=== PATIENT | male | born 1955 | race Caucasian/White ===

== ENCOUNTER 2016-02-29 03:23 | Observation (INO) | payer MEDICARE, OTHER ==
[2016-02-29] VITALS (7 sets, daily range): BP systolic 93–143; BP diastolic 52–65; PULSE 76–96; RESP 14–18; TEMP 97.2; O2SAT 97–100
[~2016-02-29] VITALS: Ht 177.8 cm; Wt 87.0 kg
[~2016-02-29 03:23] MED LIST: ADVA250A INH; ADVAI250I PO; AEROMIS4 INH; CIAL20TA PO; DUONI NEB; FLUTI220I INH; PRED10PA PO; VENTAER INH; Z.0.OXYGENDME NC; ZITH250T PO
[2016-02-29] MEDS ORDERED: CLOP75TA PO (03:43)
[2016-02-29] MEDS ORDERED: LISI10TA3 PO (03:43)
[2016-02-29] MEDS ORDERED: PRED20 PO (03:43)
[2016-02-29] MEDS ORDERED: ADVA250A INH (03:43)
[2016-02-29] MEDS ORDERED: SODIUM CHLORIDE 0.9% FLUSH 5 ML FLUSH IVF PRN ×2 (04:30→05:45)
[2016-02-29 04:44] LABS: AUTOMATED NEUTROPHIL # 9.1 TH/MM3 (1.8-7.7); BASOPHIL # 0.1 TH/MM3 (0-0.2); BASOPHIL % 0.8 % (0.0-2.0); EOSINOPHIL # 0.3 TH/MM3 (0-0.4); EOSINOPHIL % 2.3 % (0.0-4.0); HEMATOCRIT 37.8 % (39.0-51.0); HEMO FLAGS DIFF FINAL; LYMPH % 21.6 % (9.0-44.0); MEAN CELL VOLUME 95.9 FL (80.0-100.0); MEAN CORPUSCULAR HEMOGLOBIN 32.4 PG (27.0-34.0); MEAN CORPUSCULAR HGB CONC 33.8 % (32.0-36.0); MONO % 9.3 % (0.0-8.0); PLATELET COUNT 318 TH/MM3 (150-450); RED BLOOD COUNT 3.94 MIL/MM3 (4.50-5.90); RED CELL DISTRIBUTION WIDTH 15.1 % (11.6-17.2); WHITE BLOOD COUNT 13.7 TH/MM3 (4.0-11.0)
[2016-02-29 04:58] LABS: APTT (PATIENT) 32.1 SEC (24.3-30.1); INTERNATIONAL NORMALIZED RATIO 0.9 RATIO; PROTHROMBIN TIME - PATIENT 9.9 SEC (9.8-11.6)
[2016-02-29 05:00] LABS: ANION GAP 13 MEQ/L (5-15); BICARBONATE 11.7 MEQ/L (21.0-32.0); BLOOD UREA NITROGEN 73 MG/DL (7-18); CHLORIDE 114 MEQ/L (98-107); GLOMERULAR FILTRATION RATE 29 ML/MIN (>89); POTASSIUM 3.8 MEQ/L (3.5-5.1); SODIUM (NA) 139 MEQ/L (136-145)
[2016-02-29 05:06] LABS: CREATINE KINASE 85 U/L (39-308)
--- NOTE | 2016-02-29 05:44 | PD ---
HPI Chief Complaint: Chest Pain Time Seen by Provider: 03:48 Travel History International Travel<30 days: No Contact w/Intl Traveler<30days: No Traveled to known affect area: No History of Present Illness HPI The patient's 60 years old. He has had chest pain tonight. It started at rest. Has a location within the left chest somewhat deep. There is no pleuritic component or trauma. He's had no shortness of breath or fever. His level of activity has been normal lately as has his diet. He reports compliance with Plavix and antihypertensives. He reports following up with Dr. Mccann his rn urology in the last few days. PFSH Past Medical History Autoimmune Disease: No Heart Rhythm Problems: No Cancer: Yes (BLADDER) Cardiac Catheterization: Yes Cardiovascular Problems: Yes ([place]) High Cholesterol: Yes Chemotherapy: Yes (LAST TX 01/24/13, BLADDER CX) Chest Pain: No Congestive Heart Failure: No COPD: Yes Diabetes: No Diminished Hearing: No Endocrine: No GERD: No Genitourinary: Yes (RECENT STRESS ON KIDNEY WITH CHEMO) Headaches: Yes Hepatitis: No Hiatal Hernia: No Hypertension: Yes Immune Disorder: No Implanted Vascular Access Dvce: Yes Kidney Stones: No Musculoskeletal: No Neurologic: Yes Psychiatric: No Reproductive: No Respiratory: Yes (EMPHYSEMA) Immunizations Current: Yes Myocardial Infarction: Yes Radiation Therapy: No Renal Failure: No Seizures: No Thyroid Disease: No Ulcer: No Past Surgical History Abdominal Surgery: No AICD: No Body Medical Devices: STENT Cardiac Surgery: Yes Coronary Stent: Yes (x1) Ear Surgery: No Endocrine Surgery: No Eye Surgery: No Genitourinary Surgery: Yes ("BLADDER SCRAPING" NEOBLADDER) Gynecologic Surgery: No Joint Replacement: No Oral Surgery: Yes (DENTAL) Pacemaker: No Thoracic Surgery: Yes (COLLAPSED LUNG) Other Surgery: Yes (PORT PLACEMENT AND PORT REMOVAL) Social History Alcohol Use: Yes (occ.) Tobacco Use: Yes (1.5 ppd) Substance Use: No Allergies-Medications (Allergen,Severity, Reaction): Coded Allergies: No Known Allergies (Unverified , 02/29/16) Reported Meds & Prescriptions Reported Meds & Active Scripts Active Reported Prednisone 20 Mg Tab 20 Mg PO DAILY Clopidogrel (Clopidogrel Bisulfate) 75 Mg Tab 75 Mg PO DAILY Advair Diskus Inh (Fluticasone-Salmeterol Inh) 250-50 Mcg/Blist Aer 1 Puff INH BID Rinse mouth after use. Lisinopril 10 Mg Tab 10 Mg PO DAILY Review of Systems Except as stated in HPI: all other systems reviewed are Neg Physical Exam Narrative GENERAL: 60-year-old male pleasant distress no acute distress SKIN: Warm and dry. HEAD: Atraumatic. Normocephalic. EYES: Pupils equal and round. No scleral icterus. No injection or drainage. ENT: No nasal bleeding or discharge. Mucous membranes pink and moist. NECK: Trachea midline. No JVD. CARDIOVASCULAR: Regular rate and rhythm. No murmur appreciated. RESPIRATORY: No accessory muscle use. Clear to auscultation. Breath sounds equal bilaterally. GASTROINTESTINAL: Abdomen soft, non-tender, nondistended. Hepatic and splenic margins not palpable. MUSCULOSKELETAL: No obvious deformities. No clubbing. No cyanosis. No edema. NEUROLOGICAL: Awake and alert. No obvious cranial nerve deficits. Motor grossly within normal limits. Normal speech. PSYCHIATRIC: Appropriate mood and affect; insight and judgment normal. Data Data Last Documented VS Vital Signs Date Time Temp Pulse Resp B/P Pulse Ox O2 Delivery O2 Flow Rate FiO2 02/29/16 04:35 99 Nasal Cannula 2 02/29/16 03:37 92 02/29/16 03:30 97.2 18 143/65 Orders Electrocardiogram (02/29/16 04:19) Basic Metabolic Panel (Bmp) (02/29/16 04:19) Ckmb (Isoenzyme) Profile (02/29/16 04:19) Complete Blood Count With Diff (02/29/16 04:19) Magnesium (Mg) (02/29/16 04:19) Prothrombin Time / Inr (Pt) (02/29/16 04:19) Act Partial Throm Time (Ptt) (02/29/16 04:19) Troponin I (02/29/16 04:19) Chest, Single Ap (02/29/16 04:19) Ecg Monitoring (02/29/16 04:19) Bilateral Bp Monitoring (02/29/16 04:19) Iv Access Insert/Monitor (02/29/16 04:19) Oximetry (02/29/16 04:19) Oxygen Administration (02/29/16 04:19) Sodium Chloride 0.9% Flush (Ns Flush) (02/29/16 04:30) Labs Laboratory Tests Test 02/29/16 04:15 White Blood Count 13.7 TH/MM3 Red Blood Count 3.94 MIL/MM3 Hemoglobin 12.8 GM/DL Hematocrit 37.8 % Mean Corpuscular Volume 95.9 FL Mean Corpuscular Hemoglobin 32.4 PG Mean Corpuscular Hemoglobin 33.8 % Concent Red Cell Distribution Width 15.1 % Platelet Count 318 TH/MM3 Mean Platelet Volume 7.5 FL Neutrophils (%) (Auto) 66.0 % Lymphocytes (%) (Auto) 21.6 % Monocytes (%) (Auto) 9.3 % Eosinophils (%) (Auto) 2.3 % Basophils (%) (Auto) 0.8 % Neutrophils # (Auto) 9.1 TH/MM3 Lymphocytes # (Auto) 3.0 TH/MM3 Monocytes # (Auto) 1.3 TH/MM3 Eosinophils # (Auto) 0.3 TH/MM3 Basophils # (Auto) 0.1 TH/MM3 CBC Comment DIFF FINAL Differential Comment Prothrombin Time 9.9 SEC Prothromb Time International 0.9 RATIO Ratio Activated Partial 32.1 SEC Thromboplast Time Sodium Level 139 MEQ/L Potassium Level 3.8 MEQ/L Chloride Level 114 MEQ/L Carbon Dioxide Level 11.7 MEQ/L Anion Gap 13 MEQ/L Blood Urea Nitrogen 73 MG/DL Creatinine 2.29 MG/DL Estimat Glomerular Filtration 29 ML/MIN Rate Random Glucose 102 MG/DL Calcium Level 8.9 MG/DL Magnesium Level 2.0 MG/DL Total Creatine Kinase 85 U/L Troponin I LESS THAN 0.02 NG/ML MDM Medical Decision Making Medical Screen Exam Complete: Yes Emergency Medical Condition: Yes Medical Record Reviewed: Yes Differential Diagnosis NSTEMI, unstable angina, coronary vasospasm, PE, PTX, aortic dissection, pericarditis, myocarditis, endocarditis, PNA, esophageal disease, aneurysm, musculoskeletal etiologies, anxiety, cocaine/sympathomimetic abuse Narrative Course CBC & BMP Diagram 02/29/16 04:15 Troponin is undetectable Coags are within acceptable limits. The patient has mild recent renal function however has close side nephrology follow-up. His EKG reveals no acute ischemic injury pattern and admission chest pain is considered most reasonable next step for this patient. Diagnosis Primary Impression: Chest pain Qualified Code: R07.9 - Chest pain, unspecified type Additional Impression: CARLOS (acute kidney injury) Admitting Information Admitting Physician Requests: Observation Conrad Hair MD Feb 29, 2016 05:44
[2016-02-29] MEDS ORDERED: ONDANSETRON HCL 4 MG/2 ML VIAL IV PRN (05:45)
[2016-02-29] MEDS ORDERED: TEMAZEPAM 15 MG CAP PO PRN (05:45)
[2016-02-29] MEDS ORDERED: NITROGLYCERIN 0.4 MG SL 25 TABS/BTL SL PRN (05:45)
[2016-02-29] MEDS ORDERED: ACETAMINOPHEN/HYDROcodone 325 MG/7.5 MG TAB PO PRN (05:45)
[2016-02-29] MEDS ORDERED: MORPHINE SULFATE 4 MG/ML INJ IV PRN (05:45)
[2016-02-29] MEDS ORDERED: ALPRAZolam 0.25 MG TAB PO PRN (05:45)
--- NOTE | 2016-02-29 05:56 | RADRPT ---
EXAM DATE/TIME: 02/29/2016 04:29 [facility] COMPARISON: CT THORAX W CONTRAST, February 20, 2014, 13:36. CHEST PA & LAT, April 26, 2014, 10:46. CHEST SINGLE AP, March 23, 2015, 4:23. CHEST SINGLE AP, March 25, 2015, 20:12. INDICATIONS : Pt C/O shortness of breath and chest pain x 1 day. MEDICAL HISTORY : None. SURGICAL HISTORY : None. ENCOUNTER: Initial ACUITY: 1 day PAIN SCORE: 9/10 LOCATION: Bilateral chest FINDINGS: A single view of the chest demonstrates the lungs to be symmetrically aerated without evidence of mas s, infiltrate or effusion. No evidence pneumothorax. The cardiomediastinal contours are unremarkabl e. Mild eventration of lateral left hemidiaphragm similar in configuration to prior scans and CT. O sseous structures are intact. CONCLUSION: The lungs are clear. No evidence of pneumothorax. Lobito Andre MD on February 29, 2016 at 5:53 Board Certified Radiologist. This report was verified electronically.
[2016-02-29] MEDS ORDERED: RESP: ALBUTEROL 2.5 MG/3 ML NEB (PRN) NEB (08:45)
[2016-02-29] MEDS ORDERED: SODIUM CHLORIDE 0.9% FLUSH 5 ML FLUSH IVF SCH (09:00)
[2016-02-29] MEDS ORDERED: ASPIRIN 325 MG TAB PO SCH (09:00)
[2016-02-29] MEDS ORDERED: predniSONE 20 MG TAB PO SCH (09:00)
[2016-02-29] MEDS ORDERED: CLOPIDOGREL 75 MG TAB PO SCH (09:00)
[2016-02-29] MEDS ORDERED: AMLO5TAB2 PO (09:11)
[2016-02-29] MEDS ORDERED: NITR1SUB3 SL (09:11)
[2016-02-29] MEDS ORDERED: BUDESONIDE-FORMOTEROL 160/4.5 MCG INHALER INH SCH (10:00)
--- NOTE | 2016-02-29 10:42 | MH ---
cc: GEORGE MIRZA MD DATE OF ADMISSION: 02/29/2016 DATE OF : 1955 CHIEF COMPLAINT Chest pain HISTORY OF PRESENT ILLNESS This is a 58-year-old patient presents emergency room for further evaluation of chest discomfort that started after work early in the morning approximately 01:00 a.m. Characteristic of a sudden sharp pain located in his left anterior chest. Severity is 7/10 there was no radiation, duration lasted approximately 35-45 seconds happened approximately six times within a 45 minute period. He became concerned and came to the emergency room. Associated symptoms were none, although he does have chronic shortness of breath due to emphysema however, this did not change it did not hurt to take a deep breath. He has had similar pain such as this in the past although not as frequent. There is no known precipitating factors or relieving factors. He has not had any chest discomfort since arriving to the emergency room. PAST MEDICAL HISTORY 1. Chronic obstructive pulmonary disease. 2. Renal insufficiency. 3. Bladder cancer. 4. Hypertension. 5. Coronary artery disease. 6. Home O2 during sleep. PAST SURGICAL HISTORY March 2013 he had an ileoanal bladder placed at [facility] in [place] primary care provider is Dr. Lopez, his renal physician is Dr. Mccann and neurologist Barbara. SOCIAL HISTORY He smokes two packs of cigarettes daily. Reports a rare alcohol use. Denies any illegal drug use. Does have known hypertension. No known diabetes. No known hyperlipidemia. States he is not taking any cholesterol medication. 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 PAST CARDIAC TESTING: He is following Dr. Liu, due to see Dr. Eric at the end of this month. He had a cardiac stress test 06/05/2015 which showed an inferior infarct with an ejection fraction of 51%. No ischemia. ALLERGIES He has no allergies to medication MEDICATIONS current medication list includes 1. Lisinopril 10 mg daily. 1. Advair 250/50 1 puff b.i.d. 2. Plavix 75 mg daily. 3. Prednisone 20 mg daily. REVIEW OF SYSTEMS IN GENERAL: No fevers, chills, recent illness, fatigue, change in appetite. HEAD, EYES, EARS, NOSE, AND THROAT: No headache or visual changes. CARDIOVASCULAR SYSTEM: No current chest pain in fact no chest pain since arriving to the emergency room otherwise as stated above. No palpitations or dizziness. RESPIRATORY: Reports chronic shortness of breath. No sputum production, wheeze, at this chronic obstructive pulmonary disease is managed with Advair and home O2 and the evening hours at 2 liters. ABDOMEN: No bowel changes, diarrhea, constipation pain distension, blood in stool or dark stool. GENITOURINARY: No dysuria, urgency, frequency or hematuria. Recently had a CT scan of his abdomen and pelvis he and this has an appointment with Dr. Darek wilkins next week to review those results. EXTREMITIES: No lower leg edema or pain. Left bottom of his foot and is chronic neuropathy. States this was from epidural removal from his no. NEUROLOGIC: No bladder surgery in 2014. This is unchanged chronic. MUSCULOSKELETAL: No change in our lumbar discomfort. No difficulty with balance, motor or sensory deficits. PSYCHIATRIC: Psych no anxiety or depression. SKIN: With no concerning lesions. Reports a chronic rash in the palms of his hands which he has taken prednisone for the last 6 weeks area is improving. PHYSICAL EXAMINATION VITAL SIGNS: Temperature 97.2, pulse 96, respiratory 18, blood pressure on admission 143/65, last blood pressure documented 94/52 he is 100% on O2 2 liters. IN GENERAL: He is alert, well-nourished, well-developed in no acute distress pleasant male who appears older than his stated age. HEAD, EYES, EARS, NOSE, AND THROAT: Normocephalic, atraumatic. Eyes: Sclerae clear. Pupils are equal, round. NECK: Neck is supple. Trachea is midline. CARDIOVASCULAR SYSTEM: He has regular rate and rhythm without murmur, rub or gallop. No JVD. S1-S2. No S3. No S4. RESPIRATORY: There are no crackles, wheeze or rhonchi. He has a prolonged expiratory phase. Symmetrical chest rise and diminished breath tones throughout. ABDOMEN: His abdomen is soft, nontender, nondistended. Positive bowel tones. BACK: No scoliosis. No costovertebral angle tenderness. EXTREMITIES: Pulses +1 x4. No dependent edema. MUSCULOSKELETAL: Normal tone x4. No obvious deformities. He is nontender. PSYCHIATRIC: He is alert and oriented x3 has a pleasant affect appropriate to mood, insight and judgment. SKIN: Normal turgor, normal texture. LABORATORY She has had a CBC has a WBC of 13.7, hemoglobin of 12.8, hematocrit of 37.8 otherwise unremarkable. Chemistry has a creatinine of 2.29 estimated GFR 29 otherwise unremarkable. First sets of troponin are negative. Coagulation has APTT of 32.1 otherwise unremarkable. RADIOLOGIC: Chest x-ray Read by radiologist has conclusion of the lungs are clear. No evidence of a pneumothorax. First two EKG's showed normal sinus rhythm with a normal axis and no ST or T segment changes. ASSESSMENT/PLAN 1. Chest pain. Patient has been admitted to the chest pain center. He will be ruled out with three sets of EKG's, cardiac enzymes. He was seen and evaluated by Dr. Mirza if he is ruled out with and EKG's and blood work and is he will be discharged later this afternoon as he has had a recent stress test which was reviewed by Dr. Mirza. The patient also has an appointment with Dr. Eric 03/19/2016 and he will be encouraged to follow and keep that appointment as previously scheduled. Also he will be added amlodipine 5 mg daily for vasodilation in his lisinopril 10 mg daily will be discontinued this been discussed with the patient and he is agreeable to this plan and understands the reason for medication change. 2. Smoking. He has been strongly encouraged and stressed importance of tobacco cessation. Discussed and counseled the patient to quit tobacco use. 3. Renal insufficiency. The patient was encouraged to follow up with his roving can tender as previously scheduled early next week as he recently had lab work for his roving can tender and is scheduled to review that lab work with him. 4. Chronic obstructive pulmonary disease Reorder his Advair as previously scheduled and respiratory treatments q.2 h as needed. And has been ordered. DICTATED BY: SARAH Lang Yessi Copeland /8:43 AM /10:37 AM
[2016-02-29] MEDS ORDERED: SODIUM CHLORID 0.9% 500 ML INJ 500 ML IV ONE (11:15)
--- NOTE | 2016-02-29 12:36 | HHI.DCPOC ---
Discharge Care Plan Diagnosis: (1) Atypical chest pain (2) Tobacco abuse Goals to Promote Your Health * To prevent worsening of your condition and complications * To maintain your health at the optimal level Directions to Meet Your Goals Take your medications as prescribed Follow your dietary instruction Follow activity as directed Keep your appointments as scheduled Take your immunizations and boosters as scheduled If your symptoms worsen call your PCP, if no PCP go to Urgent Care Center or Emergency Room Smoking is Dangerous to Your Health. Avoid second hand smoke Call the 24-hour hour crisis hotline for domestic abuse at Gissel Meza Feb 29, 2016 12:36
--- NOTE | 2016-02-29 14:42 | EKG ---
Date Performed: 02/29/2016 Time Performed: 03:40:20 PTAGE: 60 years EKG: Sinus rhythm NORMAL ECG PREVIOUS TRACING : 03/23/2015 04.11 Since previous tracing, no longer tachycardic DOCTOR: Brenda Mirza Interpretating Date/Time 02/29/2016 14:37:40
--- NOTE | 2016-02-29 14:43 | EKG ---
Date Performed: 02/29/2016 Time Performed: 06:38:09 PTAGE: 60 years EKG: Sinus rhythm NORMAL ECG PREVIOUS TRACING : 03/23/2015 04.11 Since previous tracing, no significant change noted DOCTOR: Brenda Mirza Interpretating Date/Time 02/29/2016 14:38:07
--- NOTE | 2016-03-01 11:06 | EKG ---
Date Performed: 02/29/2016 Time Performed: 12:02:46 PTAGE: 60 years EKG: Sinus rhythm POOR PRECORDIAL R-WAVE PROGRESSION BORDERLINE ECG PREVIOUS TRACING : 02/29/2016 06.38 DOCTOR: Jose Green Interpretating Date/Time 03/01/2016 11:05:46
== END 2016-02-29 14:32 | disposition home or self-care (01) ==
LOC: NEPE 03:23 → NEDA 05:47 → NEDH 10:13
PROVIDERS: ADMIT Internal Medicine Interventional Cardiology; ATTEND Internal Medicine Interventional Cardiology
DX: R07.89 Other chest pain (principal); F17.210 Nicotine dependence, cigarettes, uncomplicated; J44.9 Chronic obstructive pulmonary disease, unspecified; J43.9 Emphysema, unspecified; R06.02 Shortness of breath; N17.9 Acute kidney failure, unspecified; N28.9 Disorder of kidney and ureter, unspecified; I25.2 Old myocardial infarction; I25.10 Atherosclerotic heart disease of native coronary artery without angina pectoris; I10 Essential (primary) hypertension; E78.00 Pure hypercholesterolemia, unspecified; Z85.51 Personal history of malignant neoplasm of bladder; Z95.828 Presence of other vascular implants and grafts; Z99.81 Dependence on supplemental oxygen
CPT/HCPCS: 71010; 80048; 82550; 83735; 84484; 85025; 85610; 85730; 93005; 99285; G0378; J7040; J7512

== ENCOUNTER 2017-05-11 23:27 | Inpatient (IN) | payer OTHER, MEDICARE ==
[~2017-05-11] VITALS: Ht 177.8 cm; Wt 106.0 kg
[2017-05-11 22:32] VITALS: O2SAT 97
[~2017-05-11 23:27] MED LIST changes: -ADVAI250I PO; -AEROMIS4 INH; +AMLO5TAB2 PO; +ATOR40TA16 PO; -CIAL20TA PO; +CLOP75TA PO; -DUONI NEB; -FLUTI220I INH; +NITR1SUB3 SL; -PRED10PA PO; +PRED20 PO; -VENTAER INH; -Z.0.OXYGENDME NC; -ZITH250T PO
[2017-05-11 23:30] VITALS: BP 202/114; PULSE 105; RESP 19; TEMP 98.4; O2SAT 96
--- NOTE | 2017-05-11 23:41 | PD ---
HPI Chief Complaint: Respiratory Distress Time Seen by Provider: 23:34 Travel History International Travel<30 days: No Contact w/Intl Traveler<30days: No Traveled to known affect area: No History of Present Illness HPI The patient is a 62 year old male who presents to the [facility] emergency department with a history of sudden onset of shortness of breath that began again prior to arrival. The patient reports that he was just discharged from [facility] yesterday after a week admission for COPD exacerbation and shortness of breath. Upon ambulance services arrival, the patient was on nasal cannula O2 by fire rescue and saturating 87%. The patient was noted to have crackles in the bases and was placed on CPAP. The patient was noted to be very hypertensive with a blood pressure of 205/134. The patient 's blood sugar was noted to be 121 prior to arrival. The patient received 1 DuoNeb in route to this facility. His O2 saturations improved to 92% on CPAP. The patient reports feeling mildly improved. The patient continues to have accessory muscle use noted, prolonged expiratory phase of breathing, conversational dyspnea and paroxysmal abdominal breathing. The patient reports having a history of COPD. He denies having any prior history of congestive heart failure. He does have a history of coronary artery disease with multiple stents being placed previously. Up until his hospitalization he was smoking 1 pack of cigarettes per day. He denies ever being on a ventilator previously. On review of systems otherwise, patient denies having any known recent fevers, neck pain, chest pain, abdominal pain, vomiting, diarrhea, urinary symptoms, or neurologic symptoms. PFSH Past Medical History Narrative Medical The patient's past medical history is significant for COPD, coronary artery disease, hyperlipidemia, hypertension, prior history of myocardial infarction, history of bladder cancer Hx Anticoagulant Therapy: Yes Autoimmune Disease: No Heart Rhythm Problems: No Cancer: Yes (BLADDER) Cardiac Catheterization: Yes Cardiovascular Problems: Yes (DE) High Cholesterol: Yes Chemotherapy: Yes (LAST TX 01/24/13, BLADDER CX) Chest Pain: No Congestive Heart Failure: No COPD: Yes Diabetes: No Diminished Hearing: No Endocrine: No GERD: No Genitourinary: Yes (RECENT STRESS ON KIDNEY WITH CHEMO) Headaches: Yes Hepatitis: No Hiatal Hernia: No Hypertension: Yes Immune Disorder: No Implanted Vascular Access Dvce: Yes Kidney Stones: No Musculoskeletal: No Neurologic: Yes Psychiatric: No Reproductive: No Respiratory: Yes (COPD) Immunizations Current: Yes Myocardial Infarction: Yes Radiation Therapy: No Renal Failure: No Seizures: No Thyroid Disease: No Ulcer: No Past Surgical History Narrative Surgical The patient's past surgical history is significant for [id number] placement and removal, bladder scraping related to bladder cancer, cardiac catheterization with stent placement. Abdominal Surgery: No AICD: No Body Medical Devices: STENT Cardiac Surgery: Yes Coronary Stent: Yes (x1) Ear Surgery: No Endocrine Surgery: No Eye Surgery: No Genitourinary Surgery: Yes ("BLADDER SCRAPING" NEOBLADDER) Gynecologic Surgery: No Joint Replacement: No Oral Surgery: Yes (DENTAL) Pacemaker: No Thoracic Surgery: Yes (COLLAPSED LUNG) Other Surgery: Yes (PORT PLACEMENT AND PORT REMOVAL) Social History Alcohol Use: Yes (occ.) Tobacco Use: Yes (1 ppd) Substance Use: No Allergies-Medications (Allergen,Severity, Reaction): Coded Allergies: No Known Allergies (Unverified Allergy, Unknown, 05/12/17) Reported Meds & Prescriptions Reported Meds & Active Scripts Active Nitroglycerin SL (Nitroglycerin) 0.4 Mg Subl 0.4 Mg SL DIRECTED PRN ONE TABLET UNDER THE TONGUE NEEDED FOR CHEST PAIN, MAY REPEAT EVERY FIVE MINUTES FOR A TOTAL OF 3 DOSES OR CALL 911 IF NO RELIEF Reported Prednisone 10 Mg Tab 10 Mg PO TID 14 Days Advair Diskus Inh (Fluticasone-Salmeterol Inh) 500-50 Mcg/Blist Aer 1 Puff INH BID Rinse mouth after use. Ventolin Hfa 18 GM Inh (Albuterol Sulfate) 90 Mcg/Act Aer 2 Puff INH Q4-6H PRN Nitrofurantoin Monohydrate Macrocrystals (Nitrofurantoin Monoh/Nitrofur Macro) 100 Mg Cap 100 Mg PO BID 10 Days Aspir-81 (Aspirin) 81 Mg Tabdr 81 Mg PO DAILY Amlodipine (Amlodipine Besylate) 10 Mg Tab 10 Mg PO DAILY Fenofibrate 54 Mg Tab 54 Mg PO DAILY Atorvastatin (Atorvastatin Calcium) 40 Mg Tab 40 Mg PO DAILY Clopidogrel (Clopidogrel Bisulfate) 75 Mg Tab 75 Mg PO DAILY Review of Systems Except as stated in HPI: all other systems reviewed are Neg General / Constitutional: No: Fever Eyes: No: Visual changes HENT: No: Headaches Cardiovascular: Positive: Dyspnea on exertion, No: Chest Pain or Discomfort Respiratory: Positive: Cough, Shortness of Breath Gastrointestinal: No: Abdominal Pain Genitourinary: No: Dysuria Musculoskeletal: No: Pain Skin: No Rash Neurologic: No: Weakness Psychiatric: No: Depression Endocrine: No: Polydipsia Hematologic/Lymphatic: No: Easy Bruising Physical Exam Narrative General: The patient is a well-developed well-nourished male who is short of breath on arrival on CPAP. Head and Neck exam: Head is normocephalic atraumatic. Eyes: EOMI, pupils are equal round and reactive to light. Nose: Midline septum with pink mucous membranes Mouth: Dentition unremarkable. Moist mucus membranes. Posterior oropharynx is not erythematous. No tonsillar hypertrophy. Uvula midline. Airway patent. Neck: No palpable lymphadenopathy. No nuchal rigidity. No thyromegaly. Cardiovascular: Sinus tachycardia in the low 100 without murmurs, gallops, or rubs. No pulse deficit to the extremities on simultaneous auscultation and palpation of his radial artery. Lungs: Decreased breath sounds in bilateral bases, expiratory wheezes noted with prolonged expiratory phase of breathing. The patient has accessory muscle use noted. The patient has paroxysmal abdominal breathing with conversational dyspnea. No tripoding. No rhonchi or crackles audible. Abdomen: Soft, without tenderness to palpation in all 4 quadrants of the abdomen. No guarding, rebound, or rigidity. Normal bowel sounds are audible. No tenderness on palpation of McBurney's point. Extremities: No clubbing, cyanosis, or edema. 2+ pulses in all 4 extremities. No calf tenderness on palpation. Back: No spinous process tenderness to palpation. No costovertebral angle tenderness to palpation. Neurologic Exam: Grossly nonfocal. Skin Exam: No rash noted. Intact skin that is warm and dry. Data Data Last Documented VS Vital Signs Date Time Temp Pulse Resp B/P (MAP) Pulse Ox O2 Delivery O2 Flow Rate FiO2 05/12/17 00:31 94 15 162/75 (104) 98 BiPAP 45 05/11/17 23:42 5.00 05/11/17 23:30 98.4 Orders Orders Complete Blood Count With Diff (05/11/17 23:34) Comprehensive Metabolic Panel (05/11/17 23:34) B-Type Natriuretic Peptide (05/11/17 23:34) Act Partial Throm Time (Ptt) (05/11/17 23:34) Prothrombin Time / Inr (Pt) (05/11/17 23:34) Magnesium (Mg) (05/11/17 23:34) Ckmb (Isoenzyme) Profile (05/11/17 23:34) Troponin I (05/11/17:34) Urinalysis - C+S If Indicated (05/11/17 23:34) Iv Access Insert/Monitor (05/11/17 23:34) Electrocardiogram (05/11/17:34) Ecg Monitoring (05/11/17:34) Oximetry (05/11/17:34) Oxygen Administration (05/11/17 23:34) Chest, Single Ap (05/11/17 23:34) Sodium Chloride 0.9% Flush (Ns Flush) (05/11/17 23:45) Methylprednisolone So Succ Inj (Solumedr (05/11/17 23:45) Albuterol-Ipratropium Neb (Duoneb Neb) (05/11/17 23:45) CKMB (05/11/17 23:39) CKMB% (05/11/17 23:39) Arterial Blood Gas (Abg) (05/12/17 00:07) Levofloxacin 750 Mg Premix Inj (Levaquin (05/12/17 01:00) Admit Order (Ed Use Only) (05/12/17 01:16) Labs Laboratory Tests Test 05/11/17 23:39 05/12/17 00:07 White Blood Count 15.1 TH/MM3 Red Blood Count 5.51 MIL/MM3 Hemoglobin 16.6 GM/DL Hematocrit 47.6 % Mean Corpuscular Volume 86.4 FL Mean Corpuscular Hemoglobin 30.1 PG Mean Corpuscular Hemoglobin Concent 34.8 % Red Cell Distribution Width 15.0 % Platelet Count 236 TH/MM3 Mean Platelet Volume 7.9 FL Neutrophils (%) (Auto) 79.8 % Lymphocytes (%) (Auto) 11.9 % Monocytes (%) (Auto) 7.0 % Eosinophils (%) (Auto) 0.8 % Basophils (%) (Auto) 0.5 % Neutrophils # (Auto) 12.0 TH/MM3 Lymphocytes # (Auto) 1.8 TH/MM3 Monocytes # (Auto) 1.0 TH/MM3 Eosinophils # (Auto) 0.1 TH/MM3 Basophils # (Auto) 0.1 TH/MM3 CBC Comment AUTO DIFF Differential Comment AUTO DIFF CONFIRMED Platelet Estimate NORMAL Platelet Morphology Comment NORMAL Red Cell Morphology Comment NORMAL Prothrombin Time 9.7 SEC Prothromb Time International Ratio 1.0 RATIO Activated Partial Thromboplast Time 26.3 SEC Blood Urea Nitrogen 40 MG/DL Creatinine 1.34 MG/DL Random Glucose 124 MG/DL Total Protein 7.7 GM/DL Albumin 3.7 GM/DL Calcium Level 9.1 MG/DL Magnesium Level 2.3 MG/DL Alkaline Phosphatase 105 U/L Aspartate Amino Transf (AST/SGOT) 24 U/L Alanine Aminotransferase (ALT/SGPT) 49 U/L Total Bilirubin 0.4 MG/DL Sodium Level 139 MEQ/L Potassium Level 4.2 MEQ/L Chloride Level 107 MEQ/L Carbon Dioxide Level 22.0 MEQ/L Anion Gap 10 MEQ/L Estimat Glomerular Filtration Rate 54 ML/MIN Total Creatine Kinase 297 U/L Creatine Kinase MB 11.7 NG/ML Troponin I LESS THAN 0.02 NG/ML B-Type Natriuretic Peptide 40 PG/ML Blood Gas Puncture Site RT RADIAL Blood Gas Patient Temperature 98.6 Blood Gas HCO3 22 mmol/L Blood Gas Base Excess -3.9 mmol/L Blood Gas Oxygen Saturation 93 % Arterial Blood pH 7.30 Arterial Blood Partial Pressure CO2 46 mmHg Arterial Blood Partial Pressure O2 82 mmHG Arterial Blood Oxygen Content 20.4 Vol % Arterial Blood Carboxyhemoglobin 0.7 % Arterial Blood Methemoglobin 0.8 % Blood Gas Hemoglobin 15.5 G/DL Oxygen Delivery Device BiPAP Blood Gas Ventilator Setting IPAP15 / EPAP5 Blood Gas Inspired Oxygen 45 % [facility] Medical Decision Making Medical Screen Exam Complete: Yes Emergency Medical Condition: Yes Medical Record Reviewed: Yes Interpretation(s) Last Impressions Chest X-Ray 05/11/17 1157 Signed Impressions: Service Date/Time: Thursday, May 11, 2017 23:49 - CONCLUSION: No acute findings. Stable chronic focal opacity in the left costophrenic angle. Lobito Andre MD Differential Diagnosis COPD exacerbation, versus pneumonia, versus pneumothorax, versus congestive heart failure, versus acute coronary syndrome Narrative Course During the course of the patient's emergency department visit, the patient's history, examination, and differential diagnosis were reviewed with the patient. The patient was placed on a telemetry monitor with oximetry and frequent blood pressure monitoring. The patient had IV access obtained and blood work sent for analysis. The patient had a EKG done on arrival that shows a sinus tachycardia rate of 108, QRS duration 92 ms, QTC 374 ms without any acute ST segment elevation, occasional premature ventricular complexes are noted. The patient was initially provided duo nebs 2, Solu-Medrol 125 mg IV. The patient was placed on BiPAP. The patient's laboratory studies were reviewed and remarkable for a white count of 15.1, hemoglobin 16.6, platelets 236 with 79.8 neutrophils, chemistry shows a BUN of 40, creatinine 1.34, glucose 124, CPK 297, troponin I less than 0.02. BNP is 40, PT 9.7, PTT 26.3 Radiology studies were reviewed and remarkable for a chest x-ray that shows no acute findings. Stable chronic focal opacity in the left costophrenic angle. The patient was given Levaquin 750 IV 1. The patient reported feeling improved on BiPAP which was titrated to maintain his O2 saturations greater than or equal to 92%. The patient's results were discussed with the patient, including the plan of care. I explained that further testing and/ or monitoring is indicated based on the patient's history, examination, and/ or laboratory findings. Therefore, I recommended admission for additional evaluation. The patient expressed understanding and was agreeable with this plan. The patient was admitted to the hospital in guarded condition and sent to a bed under the care of the [facility] service per Physician Communication Physician Communication The patient's case including history, pertinent physical examination findings, and laboratory studies were discussed with Dr. Yu. It was agreed that the patient would be admitted to the [facility] service. Admitting Information Admitting Physician Requests: Admit La Nena Almonte MD May 11, 2017 23:41
[2017-05-11] MEDS ORDERED: PRED10 PO (23:45)
[2017-05-11] MEDS ORDERED: NITR100C4 PO (23:45)
[2017-05-11] MEDS ORDERED: ADVA500A INH (23:45)
[2017-05-11] MEDS ORDERED: AMLO10TA2 PO (23:45)
[2017-05-11] MEDS ORDERED: ASPI81TA81 PO (23:45)
[2017-05-11] MEDS ORDERED: methylPREDNISolone SOD SUCC 125 MG/2 ML VIAL IV PUSH ONE (23:45)
[2017-05-11] MEDS ORDERED: FENO54TA PO (23:45)
[2017-05-11] MEDS ORDERED: SODIUM CHLORIDE 0.9% FLUSH 10 ML FLUSH IVF PRN (23:45)
[2017-05-11] MEDS ORDERED: VENTAER INH (23:45)
[2017-05-11 23:56] LABS: BASOPHIL # 0.1 TH/MM3 (0-0.2); BASOPHIL % 0.5 % (0.0-2.0); EOSINOPHIL # 0.1 TH/MM3 (0-0.4); EOSINOPHIL % 0.8 % (0.0-4.0); HEMATOCRIT 47.6 % (39.0-51.0); HEMOGLOBIN 16.6 GM/DL (13.0-17.0); LYMPH % 11.9 % (9.0-44.0); LYMPHOCYTE # 1.8 TH/MM3 (1.0-4.8); MEAN CELL VOLUME 86.4 FL (80.0-100.0); MEAN CORPUSCULAR HEMOGLOBIN 30.1 PG (27.0-34.0); MEAN CORPUSCULAR HGB CONC 34.8 % (32.0-36.0); MEAN PLATELET VOLUME 7.9 FL (7.0-11.0); NEUT % 79.8 % (16.0-70.0); PLATELET COUNT 236 TH/MM3 (150-450); RED BLOOD COUNT 5.51 MIL/MM3 (4.50-5.90); WHITE BLOOD COUNT 15.1 TH/MM3 (4.0-11.0)
[2017-05-12] VITALS (14 sets, daily range): BP systolic 116–162; BP diastolic 57–78; PULSE 80–94; RESP 15–22; O2SAT 92–98
--- NOTE | 2017-05-12 | RADRPT ---
EXAM DATE/TIME: 05/11/2017 23:49 [place] COMPARISON: CHEST SINGLE AP, March 23, 2015, 4:23. CHEST SINGLE AP, March 25, 2015, 20:12. CHEST SINGLE AP, February 29, 2016, 4:29. INDICATIONS : Short of breath. MEDICAL HISTORY : None. SURGICAL HISTORY : None. ENCOUNTER: Initial ACUITY: 1 day PAIN SCORE: 0/10 LOCATION: Bilateral chest FINDINGS: There is a persistent opacity laterally in the left lower lung causing blunting of the costophrenic a ngle. This is similar in appearance to prior chest x-rays dating back to February 2015. The remainde r of the lungs are clear. The heart is normal in size. The osseous structures are intact. CONCLUSION: No acute findings. Stable chronic focal opacity in the left costophrenic angle. Lobito Andre MD on May 11, 2017 at 23:57 Board Certified Radiologist. This report was verified electronically.
[2017-05-12] MEDS: RESP: ALBUTEROL 2.5 MG/IPRATROPIUM 0.5 MG NEB (SCH) INH ×2 (00:01)
[2017-05-12 00:07] LABS: PROTHROMBIN TIME - PATIENT 9.7 SEC (9.8-11.6)
[2017-05-12 00:11] LABS: ALT (GPT) 49 U/L (12-78)
[2017-05-12 00:15] LABS: ALKALINE PHOSPHATASE 105 U/L (45-117); TOTAL BILIRUBIN ADULT 0.4 MG/DL (0.2-1.0); TOTAL PROTEIN 7.7 GM/DL (6.4-8.2); TROPONIN I LESS THAN 0.02 NG/ML (0.02-0.05)
[2017-05-12 00:22] LABS: ALBUMIN 3.7 GM/DL (3.4-5.0); AST (GOT) 24 U/L (15-37); BLOOD UREA NITROGEN 40 MG/DL (7-18); CALCIUM 9.1 MG/DL (8.5-10.1); CHLORIDE 107 MEQ/L (98-107); CREATININE 1.34 MG/DL (0.60-1.30); GLOMERULAR FILTRATION RATE 54 ML/MIN (>89); GLUCOSE,RANDOM 124 MG/DL (74-106); MAGNESIUM 2.3 MG/DL (1.5-2.5); SODIUM (NA) 139 MEQ/L (136-145)
[2017-05-12] MEDS ORDERED: LEVOFLOXACIN 750 MG PREMIX INJ 150 ML IV ONE (01:00)
[2017-05-12] MEDS ORDERED: RESP: ALBUTEROL 2.5 MG/IPRATROPIUM 0.5 MG NEB (PRN) NEB (01:30)
[2017-05-12] MEDS ORDERED: NALOXONE HCL 0.4 MG/ML AMP IV PUSH PRN (01:30)
[2017-05-12] MEDS ORDERED: SODIUM CHLORIDE 0.9% FLUSH 10 ML FLUSH IV FLUSH PRN (01:30)
[2017-05-12] MEDS: RESP: ALBUTEROL 2.5 MG/IPRATROPIUM 0.5 MG NEB (SCH) NEB ×4 (03:13→21:40)
--- NOTE | 2017-05-12 05:49 | HHI.HP ---
[facility] Unknown Admission Diagnosis COPD exacerbation, hypoxemia, on Bipap Diagnoses: Travel History International Travel<30 Days: No Contact w/Intl Traveler <30 Da: No Traveled to Known Affected Are: No History of Present Illness History from patient, ER physician communication, interview of medical's. Patient reported that on Thursday afternoon, he was discharged home from [facility]. He was hospitalized there for 5 days. Was not intubated. But he did require BiPAP administration there which was then weaned off to nightly use except for the last 2 nights of his stay there. He was managed there for COPD exacerbation. He states that as for as he knows, he was not told of having had pneumonia. He thinks he may have been given IV antibiotics for that he cannot be sure. He was discharged home on prednisone. He has home oxygen 3 L. After discharge, by Thursday afternoon, patient stated he was getting more and more short of breath. He tries nebulizers at home several times but was not improving therefore called 911. Also reports of worsening cough with sputum. States that the cough started this afternoon. He reports that his is also having a cold. no fever no blood in stool or urine- but states stool is black from hospital food on plavix at home, hgb 16 dizziness once in a while no chest pain, no abdominal pain, no syncope Patient arrived to emergency room by EMS on acute respiratory distress and was transported on C Pap to ER. This is changed to BiPAP in the emergency room and he slowly improved. By the time of my exam, patient was recently off BiPAP. However he is noted to be short of breath somewhat without BiPAP. He denies any nausea or vomiting. Review of Systems Except as stated in HPI: all other systems reviewed are Neg Past Family Social History Past Medical History htn cad- s/p stent PAD with stents hyperlipidemia copd on home oxygen chronic kidney disease bladder cancer, s/p neobladder Past Surgical History neobladder coronary angiogram and stent stenting for LE Allergies: Coded Allergies: No Known Allergies (Unverified Allergy, Unknown, 05/12/17) Family History multiple members cad Social History quit smoking about 10days ago no etoh abuse no drugs Physical Exam Vital Signs Vital Signs Date Time Temp Pulse Resp B/P (MAP) Pulse Ox O2 Delivery O2 Flow Rate FiO2 05/12/17 05:36 88 16 146/70 (95) 98 Nasal Cannula 3.00 05/12/17 03:47 98 36.00 45 05/12/17 02:34 87 16 150/78 (102) 97 BiPAP 05/12/17 00:31 94 15 162/75 (104) 98 BiPAP 45 05/12/17 00:26 97 05/11/17 23:42 95 BiPAP 5.00 45 05/11/17 23:30 98.4 105 19 202/114 (143) 96 05/11/17 22:32 97 45 05/11/17 22:32 97 BiPAP 45 Physical Exam GENERAL: This is a well-nourished, well-developed patient, still short of breath and working hard off BiPAP SKIN: No rashes, ecchymoses or lesions. Cool and dry. Tactile fever. HEAD: Atraumatic. Normocephalic. No temporal or scalp tenderness. EYES: No scleral icterus. No injection or drainage. ENT: Nose without bleeding, purulent drainage or septal hematoma. Airway patent. NECK: Trachea midline. No JVD Supple, nontender, no meningeal signs. CARDIOVASCULAR: Regular rate and rhythm without murmurs, gallops, or rubs. RESPIRATORY: Bilateral expiratory wheezing. GASTROINTESTINAL: Abdomen soft, non-tender, nondistended. No guarding. MUSCULOSKELETAL: Extremities without clubbing, cyanosis, or edema. . No calf tenderness. NEUROLOGICAL: Awake and alert. Motor and sensory grossly within normal limits. Normal speech. Laboratory Laboratory Tests Test 05/11/17 23:39 05/12/17 00:07 White Blood Count 15.1 Red Blood Count 5.51 Hemoglobin 16.6 Hematocrit 47.6 Mean Corpuscular Volume 86.4 Mean Corpuscular Hemoglobin 30.1 Mean Corpuscular Hemoglobin Concent 34.8 Red Cell Distribution Width 15.0 Platelet Count 236 Mean Platelet Volume 7.9 Neutrophils (%) (Auto) 79.8 Lymphocytes (%) (Auto) 11.9 Monocytes (%) (Auto) 7.0 Eosinophils (%) (Auto) 0.8 Basophils (%) (Auto) 0.5 Neutrophils # (Auto) 12.0 Lymphocytes # (Auto) 1.8 Monocytes # (Auto) 1.0 Eosinophils # (Auto) 0.1 Basophils # (Auto) 0.1 CBC Comment AUTO DIFF Differential Comment AUTO DIFF CONFIRMED Platelet Estimate NORMAL Platelet Morphology Comment NORMAL Red Cell Morphology Comment NORMAL Prothrombin Time 9.7 Prothromb Time International Ratio 1.0 Activated Partial Thromboplast Time 26.3 Blood Urea Nitrogen 40 Creatinine 1.34 Random Glucose 124 Total Protein 7.7 Albumin 3.7 Calcium Level 9.1 Magnesium Level 2.3 Alkaline Phosphatase 105 Aspartate Amino Transf (AST/SGOT) 24 Alanine Aminotransferase (ALT/SGPT) 49 Total Bilirubin 0.4 Sodium Level 139 Potassium Level 4.2 Chloride Level 107 Carbon Dioxide Level 22.0 Anion Gap 10 Estimat Glomerular Filtration Rate 54 Total Creatine Kinase 297 Creatine Kinase MB 11.7 Troponin I LESS THAN 0.02 B-Type Natriuretic Peptide 40 Blood Gas Puncture Site RT RADIAL Blood Gas Patient Temperature 98.6 Blood Gas HCO3 22 Blood Gas Base Excess -3.9 Blood Gas Oxygen Saturation 93 Arterial Blood pH 7.30 Arterial Blood Partial Pressure CO2 46 Arterial Blood Partial Pressure O2 82 Arterial Blood Oxygen Content 20.4 Arterial Blood Carboxyhemoglobin 0.7 Arterial Blood Methemoglobin 0.8 Blood Gas Hemoglobin 15.5 Oxygen Delivery Device BiPAP Blood Gas Ventilator Setting IPAP15 / EPAP5 Blood Gas Inspired Oxygen 45 Result Diagram: 05/11/17233805/11/172338 Imaging Last 48 hours Impressions Chest X-Ray 05/11/172333 Signed Impressions: Service Date/Time: Thursday, May 11, 2017 23:49 - CONCLUSION: No acute findings. Stable chronic focal opacity in the left costophrenic angle. Lobito Andre MD Caporii VTE Risk Assessment Caprini VTE Risk Assessment: Mod/High Risk (score >= 2) Caprini Risk Assessment Model Point Value = 1 Point Value = 2 Point Value = 3 Point Value = 5 Age 41-60 Minor surgery BMI > 25 kg/m2 Swollen legs Varicose veins or History of unexplained or recurrent spontaneous Oral contraceptives or hormone replacement Sepsis (< 1 month) Serious lung disease, including pneumonia (< 1 month) Abnormal pulmonary function Acute myocardial infarction Congestive heart failure (< 1 month) History of inflammatory bowel disease Medical patient at bed rest Age 61-74 Arthroscopic surgery Major open surgery (> 45 min) Laparoscopic surgery (> 45 min) Malignancy Confined to bed (> 72 hours) Immobilizing plaster cast Central venous access Age >= 75 History of VTE Family history of VTE Factor V Leiden Prothrombin [id number] Lupus anticoagulant Anticardiolipin antibodies Elevated serum homocysteine Heparin-induced thrombocytopenia Other congenital or acquired thrombophilia Stroke (< 1 month) Elective arthroplasty Hip, pelvis, or leg fracture Acute spinal cord injury (< 1 month) Prophylaxis Regimen Total Risk Factor Score Risk Level Prophylaxis Regimen 0-1 Low Early ambulation 2 Moderate Order ONE of the following: *Sequential Compression Device (SCD) *Heparin 5000 units SQ BID 3-4 Higher Order ONE of the following medications: *Heparin 5000 units SQ TID *Enoxaparin/Lovenox 40 mg SQ daily (WT < 150 kg, CrCl > 30 mL/min) *Enoxaparin/Lovenox 30 mg SQ daily (WT < 150 kg, CrCl > 10-29 mL/min) *Enoxaparin/Lovenox 30 mg SQ BID (WT < 150 kg, CrCl > 30 mL/min) AND/OR *Sequential Compression Device (SCD) 5 or more Highest Order ONE of the following medications: *Heparin 5000 units SQ TID (Preferred with Epidurals) *Enoxaparin/Lovenox 40 mg SQ daily (WT < 150 kg, CrCl > 30 mL/min) *Enoxaparin/Lovenox 30 mg SQ daily (WT < 150 kg, CrCl > 10-29 mL/min) *Enoxaparin/Lovenox 30 mg SQ BID (WT < 150 kg, CrCl > 30 mL/min) AND *Sequential Compression Device (SCD) Assessment and Plan Assessment and Plan Impression: COPD exacerbation. Recent 5 days hospitalization for same and discharged Thursday. Suspect underlying pneumonia/inflammatory process causing the exacerbation. Suspect underlying UTI. Patient was prescribed nitrofurantoin which he hasn't started yet. Leukocytosis with left shift. Multifactorial. Steroid use. Infection. Hypoxia. Secondary to acute distress from COPD exacerbation. Patient states he was receiving shots in the belly for DVT prophylaxis. htn cad- s/p stent PAD with stents hyperlipidemia copd on home oxygen chronic kidney disease bladder cancer, s/p neobladder Plan: Nebulizers scheduled and when necessary. Solu-Medrol 40 mg IV every 6 hours. Chest x-ray personally reviewed. No evidence of acute infiltrate. Radiologist is reading that there is a chronic left obesity. Patient is not aware of such findings. Would consult patient's technical intern Dr. Adhikari who also saw patient at [facility]. If this is a known finding, no further workup. Otherwise may consider doing CT chest. We'll start patient on levofloxacin 750 mg IV every 24 hours to cover for both pulmonary and urine etiologies. UA/urine culture if indicated. Influenza screen. Sputum cultures. Resume his with his medications. DVT prophylaxis on heparin. GI prophylaxis and pantoprazole. Discussed Condition With Patient, GIANCARLO Dickson, nursing staff Physician Certification 2 Midnight Certification Type: Admission for Inpatient Services Order for Inpatient Services The services are ordered in accordance with Medicare regulations or non- Medicare payer requirements, as applicable. In the case of services not specified as inpatient-only, they are appropriately provided as inpatient services in accordance with the 2-midnight benchmark. Estimated LOS (days): 2 days is the estimated time the patient will need to remain in the hospital, assuming treatment plan goals are met and no additional complications. Post-Hospital Plan: Home Jeevan Yu MD May 12, 2017 05:49
[2017-05-12] MEDS: methylPREDNISolone SOD SUCC 40 MG/1 ML VIAL IV PUSH SCH ×3 (06:20→18:43)
[2017-05-12 07:36] LABS: BACTERIA, URINE RARE /hpf; BILIRUBIN, URINE NEG (NEG); BLOOD, URINE TRACE (NEG); GLUCOSE,URINE NEG (NEG); HYALINE CAST, URINE 1 /lpf (RARE); KETONE, URINE NEG (NEG); NITRITE,URINE NEG (NEG); SQUAMOUS EPITHELIAL CELL URINE 1 /hpf (0-5); TRANSITIONAL EPI CELLS, URINE <1 /hpf; URINE COLOR LIGHT-YELLOW (YELLW/STRAW); URINE LEUKOCYTE ESTERASE SMALL (NEG)
--- NOTE | 2017-05-12 08:45 | EKG ---
Date Performed: 05/11/2017 Time Performed: 23:32:27 PTAGE: 62 years EKG: SINUS TACHYCARDIA POSSIBLE RIGHT ATRIAL ENLARGEMENT POSSIBLE LEFT ATRIAL ENLARGEMENT ABNORM AL ECG PREVIOUS TRACING : 02/29/2016 12.02 No significant change from previous tracing noted. DOCTOR: Agusto Domingo Interpretating Date/Time 05/12/2017 08:28:40
[2017-05-12] MEDS ORDERED: CIPROFLOXACIN 500 MG TAB PO SCH (09:00)
[2017-05-12] MEDS: ASPIRIN EC 81 MG TABEC PO SCH (09:05)
[2017-05-12] MEDS: PANTOPRAZOLE SOD 40 MG DELAYED RELEASE TAB PO SCH (09:05)
[2017-05-12] MEDS: CLOPIDOGREL 75 MG TAB PO SCH (09:05)
[2017-05-12] MEDS: HEPARIN SODIUM - SQ 10,000 UNITS/ML VIAL SQ SCH ×2 (09:06→21:16)
[2017-05-12] MEDS: BUDESONIDE-FORMOTEROL 160/4.5 MCG INHALER INH SCH ×2 (10:09→21:16)
[2017-05-12] MEDS: FENOFIBRATE 48 MG TAB PO SCH (10:10)
[2017-05-12] MEDS: ATORVASTATIN 40 MG TAB PO SCH (10:10)
[2017-05-12] MEDS: SODIUM CHLORIDE 0.9% FLUSH 10 ML FLUSH IV FLUSH SCH ×2 (13:14→21:16)
--- NOTE | 2017-05-12 15:26 | HHI.PR ---
Addendum to Inpatient Note Addendum Reason: Additional Documentation Additional Information Patient seen and examined Continue with Solu Medrol, IV Levaquin, Duo Neb scheduled and PRN, Symbicort, add Spiriva and Mucinex BIPAP PRN pending Pulmonology consultation Israel Cabral MD May 12, 2017 15:26
[2017-05-12] MEDS: guaiFENesin E.R. 600 MG TAB PO SCH (21:16)
[2017-05-13] VITALS (11 sets, daily range): BP systolic 126–178; BP diastolic 60–77; PULSE 69–98; RESP 18–20; TEMP 97.8; O2SAT 93–99
[2017-05-13] MEDS: LEVOFLOXACIN 750 MG PREMIX INJ 150 ML IV SCH (00:37)
[2017-05-13] MEDS: methylPREDNISolone SOD SUCC 40 MG/1 ML VIAL IV PUSH SCH ×5 (00:37→23:00)
[2017-05-13] MEDS: RESP: ALBUTEROL 2.5 MG/IPRATROPIUM 0.5 MG NEB (SCH) NEB ×4 (03:28→22:01)
[2017-05-13 05:48] LABS: AUTOMATED NEUTROPHIL # 12.9 TH/MM3 (1.8-7.7); BASOPHIL % 0.2 % (0.0-2.0); HEMATOCRIT 44.5 % (39.0-51.0); HEMOGLOBIN 14.9 GM/DL (13.0-17.0); LYMPH % 4.6 % (9.0-44.0); LYMPHOCYTE # 0.6 TH/MM3 (1.0-4.8); MEAN CELL VOLUME 87.8 FL (80.0-100.0); MEAN CORPUSCULAR HEMOGLOBIN 29.3 PG (27.0-34.0); MEAN CORPUSCULAR HGB CONC 33.4 % (32.0-36.0); MEAN PLATELET VOLUME 8.1 FL (7.0-11.0); MONO % 3.1 % (0.0-8.0); MONOCYTE # 0.4 TH/MM3 (0-0.9); NEUT % 92.1 % (16.0-70.0); PLATELET COUNT 207 TH/MM3 (150-450); RED BLOOD COUNT 5.07 MIL/MM3 (4.50-5.90); RED CELL DISTRIBUTION WIDTH 15.1 % (11.6-17.2)
[2017-05-13 06:18] LABS: BICARBONATE 21.1 MEQ/L (21.0-32.0); CALCIUM 8.7 MG/DL (8.5-10.1); CREATININE 1.27 MG/DL (0.60-1.30)
[2017-05-13] MEDS: TIOTROPIUM BROMIDE 18 MCG INH INH SCH (09:16)
[2017-05-13] MEDS: BUDESONIDE-FORMOTEROL 160/4.5 MCG INHALER INH SCH ×2 (09:16→22:53)
[2017-05-13] MEDS: SODIUM CHLORIDE 0.9% FLUSH 10 ML FLUSH IV FLUSH SCH ×2 (09:17→22:52)
[2017-05-13] MEDS: PANTOPRAZOLE SOD 40 MG DELAYED RELEASE TAB PO SCH (09:17)
[2017-05-13] MEDS: CLOPIDOGREL 75 MG TAB PO SCH (09:17)
[2017-05-13] MEDS: guaiFENesin E.R. 600 MG TAB PO SCH ×2 (09:17→22:52)
[2017-05-13] MEDS: ASPIRIN EC 81 MG TABEC PO SCH (09:17)
[2017-05-13] MEDS: ATORVASTATIN 40 MG TAB PO SCH (09:18)
[2017-05-13] MEDS: HEPARIN SODIUM - SQ 10,000 UNITS/ML VIAL SQ SCH ×2 (09:18→22:53)
[2017-05-13] MEDS: FENOFIBRATE 48 MG TAB PO SCH (09:18)
--- NOTE | 2017-05-13 10:06 | MB ---
cc: Slick Adhikari MD DATE: 05/12/2017 REQUESTING DOCTOR: Dr. Amato REASON FOR CONSULTATION: Pulmonary management. HISTORY OF PRESENT ILLNESS: Mr. Jasso is a pleasant 62-year-old white male who was recently admitted at [facility] with hypercapnic respiratory failure. He has combined metabolic and respiratory acidosis. He was treated with BiPAP. He did much better and was discharged on home O2. He gets home oxygen therapy and he was feeling much better. He came to [facility] with sudden onset of shortness of breath. He says that he just lost his breath. He denied any chest pain. No nausea or vomiting. No fever or chills. He was evaluated in the emergency room. His chest x-ray shows no acute processes. His CBC showed WBC of 15.1, hemoglobin 16.6, hematocrit 47.6, MCV 86, platelet count 236. Sodium 130, potassium 4.2, chloride 107, CO2 22, BUN 54, creatinine 124. His blood gas shows pH 7.30, pCO2 46, pO2 82, bicarbonate 22, saturation 89%. Influenza antigen is negative. Currently, he is weaned down to nasal cannula, feels much better. PAST MEDICAL HISTORY: History of COPD, hypertension, hyperlipidemia, history of CA of the bladder, myocardial infarction, coronary artery disease, carotid artery stenosis. MEDICATIONS HE IS CURRENTLY TAKIN. Spiriva once a day. 2. Levaquin 750 mg a day. 3. Mucinex 600 mg twice a day. 4. Protonix 40 mg. 5. Plavix 75 mg a day. 6. Norvasc 10 mg a day. 7. Aspirin 81 mg daily. 8. Lipitor 40 mg. 9. Fenofibrate 48 mg a day. 10. Symbicort 160/4.5 two puffs twice a day. 11. Heparin 5000 every 12 hours. 12. Solu-Medrol 40 mg every 6 hours. 13. Albuterol/Atrovent nebulizer treatment. ALLERGIES: NO KNOWN DRUG ALLERGIES. SOCIAL HISTORY: He has history of smoking, which he quit. Denies any alcohol. He drinks rarely. FAMILY HISTORY: . REVIEW OF SYSTEMS: He denies any headache or dizziness. No seizures, stroke, no DVT or pulmonary embolism. PHYSICAL EXAMINATION: GENERAL: Obese male, mildly short of breath. VITAL SIGNS: Blood pressure 143/63, heart rate 90, respirations 20, temperature 98. HEENT: Pupils are equal and reactive to light. Oral mucosa and nasal mucosa normal. NECK: Supple, JVP not raised. CHEST: Equal air entry bilaterally. Has expiratory rhonchus. CARDIOVASCULAR: S1, S2 normal. ABDOMEN: Benign. EXTREMITIES: No edema. IMPRESSION: 1. Chronic obstructive pulmonary disease with exacerbation. 2. Bronchitis. 3. Mild metabolic acidosis. 4. History of carcinoma of the bladder. 5. Coronary artery disease. PLAN: We will give him IV Solu-Medrol, aerosol treatment with albuterol/Atrovent. Continue antibiotics and subcutaneous heparin. Use CPAP as needed, otherwise keep the saturation between 88% and 92%. Further treatment will depend on the course in the hospital. Thank you, Dr. Amato for this consult. MD ERIKA Nieto/DELBERT , 07:24 PM , 07:59 PM TAMMY
--- NOTE | 2017-05-13 13:48 | HHI.PR ---
Subjective Remarks Follow-up COPD exacerbation/respiratory failure with hypoxia/community-acquired pneumonia 05/13/17-patient seen and examined; reports some improvement of shortness of breath. Has not used BIPAP since yesterday Morning. No chest pain Objective Vitals Vital Signs Date Time Temp Pulse Resp B/P (MAP) Pulse Ox O2 Delivery O2 Flow Rate FiO2 05/13/17 12:00 98 18 162/66 (98) 97 Nasal Cannula 3.00 05/13/17 10:00 98 18 141/60 (87) 97 Nasal Cannula 3.00 05/13/17 08:36 95 Nasal Cannula 3.00 05/13/17 08:00 80 18 126/61 (82) 97 Nasal Cannula 3.00 05/13/17 06:00 78 18 133/63 (86) 97 Nasal Cannula 3.00 05/13/17 04:00 76 18 140/66 (90) 94 Nasal Cannula 3.00 05/13/17 00:00 93 20 146/65 (92) 93 Nasal Cannula 3.00 05/12/17 21:44 92 Nasal Cannula 3.00 05/12/17 19:30 90 20 158/75 (102) 92 Nasal Cannula 3.00 05/12/17 18:47 92 20 143/63 (89) 93 Nasal Cannula 3.00 05/12/17 18:20 Nasal Cannula 2.00 05/12/17 15:16 80 20 124/62 (82) 92 Nasal Cannula 2.00 05/12/17 15:00 86 20 144/69 (94) 93 Nasal Cannula 3.00 I/O 05/12/17 05/12/17 05/12/17 05/13/17 05/13/17 05/13/17 07:00 15:00 23:00 07:00 15:00 23:00 Intake Total 150 ml Output Total 400 ml 1800 ml 1000 ml 1600 ml Balance -250 ml -1800 ml -1000 ml -1600 ml Intake IV Total 150 ml Output Urine Total 400 ml 1800 ml 1000 ml 1600 ml Bladder Scan Volume Amount 976 ml # Voids 1 0 0 Result Diagram: 05/13/17 0507 05/13/17 0507 Imaging Last Impressions Chest X-Ray 05/11/17 1198 Signed Impressions: Service Date/Time: Thursday, May 11, 2017 23:49 - CONCLUSION: No acute findings. Stable chronic focal opacity in the left costophrenic angle. Lobito Andre MD Objective Remarks GENERAL: NAD SKIN: Warm and dry. HEAD: Normocephalic. EYES: No scleral icterus. No injection or drainage. NECK: Supple, trachea midline. No JVD or lymphadenopathy. CARDIOVASCULAR: Regular rate and rhythm without murmurs, gallops, or rubs. RESPIRATORY: Breath sounds decrease bilaterally. No accessory muscle use.+exp wheezings GASTROINTESTINAL: Abdomen soft, non-tender, nondistended. MUSCULOSKELETAL: No cyanosis, or edema. BACK: Nontender without obvious deformity. No CVA tenderness. A/P Problem List: (1) COPD with exacerbation ICD Code: J44.1 - Obstructive chronic bronchitis with exacerbation Status: Acute (2) Respiratory failure with hypoxia ICD Code: J96.91 - Respiratory failure, unspecified with hypoxia Assessment and Plan 62-year-old man with COPD exacerbation. Suspect underlying pneumonia/inflammatory process causing the exacerbation. Suspect underlying UTI. Patient was prescribed nitrofurantoin which he hasn't started yet. Leukocytosis with left shift. Multifactorial. Steroid use. Infection. Respiratory failure with Hypoxemia htn cad- s/p stent PAD with stents hyperlipidemia copd on home oxygen chronic kidney disease bladder cancer, s/p neobladder Plan: Nebulizers scheduled and when necessary. Solu-Medrol 40 mg IV every 6 hours. Symbicort, Spiriva and Mucinex Continue with Levaquin Appreciate input from Pulmonary Medicine Sputum cultures. Continue his with his medications. DVT prophylaxis on heparin. GI prophylaxis and pantoprazole. Israel Cabral MD May 13, 2017 13:48
--- NOTE | 2017-05-13 20:17 | HHI.PR ---
Subjective Remarks 62 YOWM with Severe COPD with exac. Recent hypercapnoic RF Still has sob Walking few steps is difficult at BS Request DNR Objective Vital Signs Vital Signs Date Time Temp Pulse Resp B/P (MAP) Pulse Ox O2 Delivery O2 Flow Rate FiO2 05/13/17 18:00 97.8 69 20 158/77 (104) 96 05/13/17 16:14 05/13/17 15:00 88 152/75 (100) 96 Nasal Cannula 3.00 05/13/17 13:00 96 18 178/74 (108) 99 Nasal Cannula 3.00 05/13/17 12:00 98 18 162/66 (98) 97 Nasal Cannula 3.00 05/13/17 10:00 98 18 141/60 (87) 97 Nasal Cannula 3.00 05/13/17 08:36 95 Nasal Cannula 3.00 05/13/17 08:00 80 18 126/61 (82) 97 Nasal Cannula 3.00 05/13/17 06:00 78 18 133/63 (86) 97 Nasal Cannula 3.00 05/13/17 04:00 76 18 140/66 (90) 94 Nasal Cannula 3.00 05/13/17 00:00 93 20 146/65 (92) 93 Nasal Cannula 3.00 05/12/17 21:44 92 Nasal Cannula 3.00 I/O 05/12/17 05/12/17 05/12/17 05/13/17 05/13/17 05/13/17 07:00 15:00 23:00 07:00 15:00 23:00 Intake Total 150 ml Output Total 400 ml 1800 ml 1000 ml 1600 ml 900 ml Balance -250 ml -1800 ml -1000 ml -1600 ml -900 ml Intake IV Total 150 ml Output Urine Total 400 ml 1800 ml 1000 ml 1600 ml 900 ml Bladder Scan Volume Amount 976 ml # Voids 1 0 0 Result Diagram: 05/13/17 0507 05/13/17 0507 Objective Remarks GENERAL: WBWN WM, sob SKIN: Warm and dry. HEAD: Normocephalic. EYES: No scleral icterus. No injection or drainage. NECK: Supple, trachea midline. No JVD or lymphadenopathy. CARDIOVASCULAR: Regular rate and rhythm without murmurs, gallops, or rubs. RESPIRATORY: Breath sounds equal bilaterally. No accessory muscle use. Exp rhonchi GASTROINTESTINAL: Abdomen soft, non-tender, nondistended. MUSCULOSKELETAL: No cyanosis, or edema. BACK: Nontender without obvious deformity. No CVA tenderness. A/P Assessment and Plan IMPRESSION: 1. Chronic obstructive pulmonary disease with exacerbation. 2. Bronchitis. 3. Mild metabolic acidosis. 4. History of carcinoma of the bladder. 5. Coronary artery disease 6. DNR PLAN: IV Solumedrol Aerosol nebs Cont Abx Supplement 02 Plavix 75 mg daily DW pt and his at BS. Slick Adhikari MD May 13, 2017 20:17
[2017-05-14] VITALS (8 sets, daily range): BP systolic 122–151; BP diastolic 58–72; PULSE 77–88; RESP 18–23; TEMP 96–98.8; O2SAT 96–100
[2017-05-14] MEDS: LEVOFLOXACIN 750 MG PREMIX INJ 150 ML IV SCH (01:08)
[2017-05-14] MEDS: RESP: ALBUTEROL 2.5 MG/IPRATROPIUM 0.5 MG NEB (SCH) NEB ×4 (04:10→20:19)
[2017-05-14] MEDS: methylPREDNISolone SOD SUCC 40 MG/1 ML VIAL IV PUSH SCH ×3 (06:13→18:34)
[2017-05-14] MEDS: BUDESONIDE-FORMOTEROL 160/4.5 MCG INHALER INH SCH ×2 (09:00→20:44)
[2017-05-14] MEDS: TIOTROPIUM BROMIDE 18 MCG INH INH SCH (09:00)
[2017-05-14] MEDS: FENOFIBRATE 48 MG TAB PO SCH (10:02)
[2017-05-14] MEDS: guaiFENesin E.R. 600 MG TAB PO SCH ×2 (10:02→20:43)
[2017-05-14] MEDS: CLOPIDOGREL 75 MG TAB PO SCH (10:02)
[2017-05-14] MEDS: ASPIRIN EC 81 MG TABEC PO SCH (10:03)
[2017-05-14] MEDS: PANTOPRAZOLE SOD 40 MG DELAYED RELEASE TAB PO SCH (10:03)
[2017-05-14] MEDS: ATORVASTATIN 40 MG TAB PO SCH (10:03)
[2017-05-14] MEDS: SODIUM CHLORIDE 0.9% FLUSH 10 ML FLUSH IV FLUSH SCH ×2 (10:05→20:44)
[2017-05-14] MEDS: HEPARIN SODIUM - SQ 10,000 UNITS/ML VIAL SQ SCH ×2 (10:07→20:44)
--- NOTE | 2017-05-14 11:25 | HHI.PR ---
Subjective Remarks Follow-up COPD exacerbation/respiratory failure with hypoxia/community-acquired pneumonia 05/13/17-patient seen and examined; reports some improvement of shortness of breath. Has not used BIPAP since yesterday Morning. No chest pain 05/14/17-patient seen and examined, states he is breathing a lot better today, denies any chest pain. Afebrile. Objective Vitals Vital Signs Date Time Temp Pulse Resp B/P (MAP) Pulse Ox O2 Delivery O2 Flow Rate FiO2 05/14/17 08:24 97 Nasal Cannula 4.00 05/14/17 08:00 96.0 77 23 122/72 (89) 100 05/14/17 04:00 98.1 77 22 151/70 (97) 97 05/14/17 00:00 98.8 88 22 130/58 (82) 96 05/13/17 22:03 95 Nasal Cannula 4.00 05/13/17 18:00 97.8 69 20 158/77 (104) 96 05/13/17 16:14 05/13/17 15:00 88 152/75 (100) 96 Nasal Cannula 3.00 05/13/17 13:00 96 18 178/74 (108) 99 Nasal Cannula 3.00 05/13/17 12:00 98 18 162/66 (98) 97 Nasal Cannula 3.00 I/O 05/13/17 05/13/17 05/13/17 05/14/17 05/14/17 05/14/17 06:59 14:59 22:59 06:59 14:59 22:59 Intake Total 220 ml Output Total 1600 ml 900 ml 2800 ml Balance -1600 ml -900 ml -2580 ml Intake Oral 220 ml Output Urine Total 1600 ml 900 ml 2800 ml Stool Total 0 ml # Bowel Movements 0 Result Diagram: 05/13/17 0507 05/13/17 0507 Imaging Last Impressions Chest X-Ray 05/11/17 5624 Signed Impressions: Service Date/Time: Thursday, May 11, 2017 23:49 - CONCLUSION: No acute findings. Stable chronic focal opacity in the left costophrenic angle. Lobito Andre MD Objective Remarks GENERAL: NAD SKIN: Warm and dry. HEAD: Normocephalic. EYES: No scleral icterus. No injection or drainage. NECK: Supple, trachea midline. No JVD or lymphadenopathy. CARDIOVASCULAR: Regular rate and rhythm without murmurs, gallops, or rubs. RESPIRATORY: Breath sounds decrease bilaterally. No accessory muscle use. GASTROINTESTINAL: Abdomen soft, non-tender, nondistended. MUSCULOSKELETAL: No cyanosis, or edema. BACK: Nontender without obvious deformity. No CVA tenderness. A/P Problem List: (1) COPD with exacerbation ICD Code: J44.1 - Obstructive chronic bronchitis with exacerbation Status: Acute (2) Respiratory failure with hypoxia ICD Code: J96.91 - Respiratory failure, unspecified with hypoxia Assessment and Plan 62-year-old man with COPD exacerbation. Suspect underlying pneumonia/inflammatory process causing the exacerbation. Suspect underlying UTI. Patient was prescribed nitrofurantoin which he hasn't started yet. Leukocytosis with left shift. Multifactorial. Steroid use. Infection. Respiratory failure with Hypoxemia and Hypercapnia htn cad- s/p stent PAD with stents hyperlipidemia copd on home oxygen chronic kidney disease bladder cancer, s/p neobladder Plan: Nebulizers scheduled and when necessary. Solu-Medrol 40 mg IV every 6 hours. Symbicort, Spiriva and Mucinex Continue with Levaquin Appreciate input from Pulmonary Medicine Sputum cultures negative to date. Continue treatment for other chronic medical conditions DVT prophylaxis on heparin. GI prophylaxis and pantoprazole. DO NOT RESUSCITATE Israel Cabral MD May 14, 2017 11:25
--- NOTE | 2017-05-14 17:24 | HHI.PR ---
Subjective Remarks 62 YOWM with Severe COPD with exac. Recent hypercapnoic RF Walking few steps is difficult at BS Request DNR Wheezing better today Less sob Objective Vital Signs Vital Signs Date Time Temp Pulse Resp B/P (MAP) Pulse Ox O2 Delivery O2 Flow Rate FiO2 05/14/17 16:00 97.7 80 18 136/63 (87) 96 05/14/17 12:00 97.0 88 18 136/65 (88) 98 05/14/17 08:24 97 Nasal Cannula 4.00 05/14/17 08:00 96.0 77 23 122/72 (89) 100 05/14/17 04:00 98.1 77 22 151/70 (97) 97 05/14/17 00:00 98.8 88 22 130/58 (82) 96 05/13/17 22:03 95 Nasal Cannula 4.00 05/13/17 18:00 97.8 69 20 158/77 (104) 96 I/O 05/13/17 05/13/17 05/13/17 05/14/17 05/14/17 05/14/17 07:00 15:00 23:00 07:00 15:00 23:00 Intake Total 220 ml Output Total 1600 ml 900 ml 2800 ml 1400 ml Balance -1600 ml -900 ml -2580 ml -1400 ml Intake Oral 220 ml Output Urine Total 1600 ml 900 ml 2800 ml 1400 ml Stool Total 0 ml # Bowel Movements 0 Result Diagram: 05/13/17 0507 05/13/17 0507 Objective Remarks GENERAL: WBWN WM, sob SKIN: Warm and dry. HEAD: Normocephalic. EYES: No scleral icterus. No injection or drainage. NECK: Supple, trachea midline. No JVD or lymphadenopathy. CARDIOVASCULAR: Regular rate and rhythm without murmurs, gallops, or rubs. RESPIRATORY: Breath sounds equal bilaterally. No accessory muscle use. Exp rhonchi GASTROINTESTINAL: Abdomen soft, non-tender, nondistended. MUSCULOSKELETAL: No cyanosis, or edema. BACK: Nontender without obvious deformity. No CVA tenderness. A/P Assessment and Plan IMPRESSION: 1. Chronic obstructive pulmonary disease with exacerbation. 2. Bronchitis. 3. Mild metabolic acidosis. 4. History of carcinoma of the bladder. 5. Coronary artery disease 6. DNR PLAN: IV Solumedrol Aerosol nebs Cont Abx Supplement 02 Plavix 75 mg daily Slick Adhikari MD May 14, 2017 17:24
[2017-05-15] VITALS (8 sets, daily range): BP systolic 126–153; BP diastolic 56–72; PULSE 63–91; RESP 15–22; TEMP 96–98.4; O2SAT 86–98
[2017-05-15] MEDS: LEVOFLOXACIN 750 MG PREMIX INJ 150 ML IV SCH ×2 (01:13→23:47)
[2017-05-15] MEDS: methylPREDNISolone SOD SUCC 40 MG/1 ML VIAL IV PUSH SCH ×4 (01:13→17:39)
[2017-05-15] MEDS: RESP: ALBUTEROL 2.5 MG/IPRATROPIUM 0.5 MG NEB (SCH) NEB ×4 (03:10→22:04)
[2017-05-15 05:09] LABS: AUTOMATED NEUTROPHIL # 15.6 TH/MM3 (1.8-7.7); BASOPHIL % 0.1 % (0.0-2.0); HEMATOCRIT 43.1 % (39.0-51.0); HEMOGLOBIN 14.4 GM/DL (13.0-17.0); LYMPH % 3.8 % (9.0-44.0); LYMPHOCYTE # 0.6 TH/MM3 (1.0-4.8); MEAN CORPUSCULAR HEMOGLOBIN 29.4 PG (27.0-34.0); MEAN CORPUSCULAR HGB CONC 33.5 % (32.0-36.0); MEAN PLATELET VOLUME 8.6 FL (7.0-11.0); MONO % 3.7 % (0.0-8.0); MONOCYTE # 0.6 TH/MM3 (0-0.9); NEUT % 92.4 % (16.0-70.0); PLATELET COUNT 205 TH/MM3 (150-450); RED CELL DISTRIBUTION WIDTH 14.8 % (11.6-17.2); WHITE BLOOD COUNT 16.8 TH/MM3 (4.0-11.0)
[2017-05-15 05:30] LABS: BICARBONATE 21.9 MEQ/L (21.0-32.0); CALCIUM 8.2 MG/DL (8.5-10.1); CREATININE 1.38 MG/DL (0.60-1.30)
[2017-05-15] MEDS: TIOTROPIUM BROMIDE 18 MCG INH INH SCH (09:00)
[2017-05-15] MEDS: BUDESONIDE-FORMOTEROL 160/4.5 MCG INHALER INH SCH ×2 (09:22→21:04)
[2017-05-15] MEDS: HEPARIN SODIUM - SQ 10,000 UNITS/ML VIAL SQ SCH ×2 (09:23→21:04)
[2017-05-15] MEDS: guaiFENesin E.R. 600 MG TAB PO SCH ×2 (09:23→21:04)
[2017-05-15] MEDS: CLOPIDOGREL 75 MG TAB PO SCH (09:24)
[2017-05-15] MEDS: PANTOPRAZOLE SOD 40 MG DELAYED RELEASE TAB PO SCH (09:24)
[2017-05-15] MEDS: ATORVASTATIN 40 MG TAB PO SCH (09:24)
[2017-05-15] MEDS: SODIUM CHLORIDE 0.9% FLUSH 10 ML FLUSH IV FLUSH SCH ×2 (09:24→21:04)
[2017-05-15] MEDS: FENOFIBRATE 48 MG TAB PO SCH (09:24)
[2017-05-15] MEDS: ASPIRIN EC 81 MG TABEC PO SCH (09:24)
--- NOTE | 2017-05-15 13:19 | HHI.PR ---
Subjective Remarks Follow-up COPD exacerbation/respiratory failure with hypoxia/community-acquired pneumonia 05/13/17-patient seen and examined; reports some improvement of shortness of breath. Has not used BIPAP since yesterday Morning. No chest pain 05/14/17-patient seen and examined, states he is breathing a lot better today, denies any chest pain. Afebrile. 05/15/17-patient seen and examined, no chest pain, SOB, dizziness. Afebrile Objective Vitals Vital Signs Date Time Temp Pulse Resp B/P (MAP) Pulse Ox O2 Delivery O2 Flow Rate FiO2 05/15/17 11:00 97.5 91 20 146/65 (92) 86 05/15/17 10:30 98 Nasal Cannula 4.00 05/15/17 08:21 95 Nasal Cannula 3.00 45 05/15/17 08:15 96.0 79 18 153/70 (97) 92 05/15/17 04:00 97.9 84 20 128/56 (80) 95 05/15/17 00:00 Nasal Cannula 3.00 05/15/17 00:00 98.4 65 17 137/72 (93) 98 05/14/17 20:42 97.4 81 20 139/66 (90) 98 05/14/17 20:20 98 Nasal Cannula 4.00 05/14/17 20:00 Nasal Cannula 3.00 05/14/17 16:00 97.7 80 18 136/63 (87) 96 I/O 05/14/17 05/14/17 05/14/17 05/15/17 05/15/17 05/15/17 07:00 15:00 23:00 07:00 15:00 23:00 Intake Total 220 ml 1170 ml 150 ml Output Total 2800 ml 1900 ml Balance -2580 ml -730 ml 150 ml Intake Oral 220 ml 1170 ml IV Total 150 ml Output Urine Total 2800 ml 1900 ml Stool Total 0 ml # Voids 3 # Bowel Movements 0 0 Result Diagram: 05/15/17 0335 05/15/17 0335 Imaging Last Impressions Chest X-Ray 05/11/17 0524 Signed Impressions: Service Date/Time: Thursday, May 11, 2017 23:49 - CONCLUSION: No acute findings. Stable chronic focal opacity in the left costophrenic angle. Lobito Andre MD Objective Remarks GENERAL: NAD SKIN: Warm and dry. HEAD: Normocephalic. EYES: No scleral icterus. No injection or drainage. NECK: Supple, trachea midline. No JVD or lymphadenopathy. CARDIOVASCULAR: Regular rate and rhythm without murmurs, gallops, or rubs. RESPIRATORY: Breath sounds decrease bilaterally. No accessory muscle use. GASTROINTESTINAL: Abdomen soft, non-tender, nondistended. MUSCULOSKELETAL: No cyanosis, or edema. BACK: Nontender without obvious deformity. No CVA tenderness. Procedures None A/P Problem List: (1) COPD with exacerbation ICD Code: J44.1 - Obstructive chronic bronchitis with exacerbation Status: Acute (2) Respiratory failure with hypoxia ICD Code: J96.91 - Respiratory failure, unspecified with hypoxia Assessment and Plan 62-year-old man with COPD exacerbation. Suspect underlying pneumonia/inflammatory process causing the exacerbation. Suspect underlying UTI. Will need Macrobid on discharge Leukocytosis with left shift. Multifactorial. Steroid use. Infection. Respiratory failure with Hypoxemia and Hypercapnia-Resolved htn cad- s/p stent PAD with stents hyperlipidemia copd on home oxygen chronic kidney disease bladder cancer, s/p neobladder Plan: Nebulizers scheduled and when necessary. Solu-Medrol 40 mg IV every 6 hours. Symbicort, Spiriva and Mucinex Continue with Levaquin Appreciate input from Pulmonary Medicine Sputum cultures negative to date. Continue treatment for other chronic medical conditions DVT prophylaxis on heparin. GI prophylaxis and pantoprazole. DO NOT RESUSCITATE Israel Cabral MD May 15, 2017 13:19
--- NOTE | 2017-05-15 18:38 | HHI.PR ---
Subjective Remarks 62 YOWM with Severe COPD with exac. Recent hypercapnoic RF Request DNR Wheezing better today Less sob Ambulates Objective Vital Signs Vital Signs Date Time Temp Pulse Resp B/P (MAP) Pulse Ox O2 Delivery O2 Flow Rate FiO2 05/15/17 16:00 97.3 82 22 151/69 (96) 95 05/15/17 11:00 97.5 91 20 146/65 (92) 86 05/15/17 10:30 98 Nasal Cannula 4.00 05/15/17 08:21 95 Nasal Cannula 3.00 45 05/15/17 08:15 96.0 79 18 153/70 (97) 92 05/15/17 04:00 97.9 84 20 128/56 (80) 95 05/15/17 00:00 Nasal Cannula 3.00 05/15/17 00:00 98.4 65 17 137/72 (93) 98 05/14/17 20:42 97.4 81 20 139/66 (90) 98 05/14/17 20:20 98 Nasal Cannula 4.00 05/14/17 20:00 Nasal Cannula 3.00 I/O 05/14/17 05/14/17 05/14/17 05/15/17 05/15/17 05/15/17 07:00 15:00 23:00 07:00 15:00 23:00 Intake Total 220 ml 1170 ml 150 ml Output Total 2800 ml 1900 ml Balance -2580 ml -730 ml 150 ml Intake Oral 220 ml 1170 ml IV Total 150 ml Output Urine Total 2800 ml 1900 ml Stool Total 0 ml # Voids 3 # Bowel Movements 0 0 Result Diagram: 05/15/17 0335 05/15/17 0335 Objective Remarks GENERAL: WBWN WM, sob SKIN: Warm and dry. HEAD: Normocephalic. EYES: No scleral icterus. No injection or drainage. NECK: Supple, trachea midline. No JVD or lymphadenopathy. CARDIOVASCULAR: Regular rate and rhythm without murmurs, gallops, or rubs. RESPIRATORY: Breath sounds equal bilaterally. No accessory muscle use. Exp rhonchi GASTROINTESTINAL: Abdomen soft, non-tender, nondistended. MUSCULOSKELETAL: No cyanosis, or edema. BACK: Nontender without obvious deformity. No CVA tenderness. A/P Assessment and Plan IMPRESSION: 1. Chronic obstructive pulmonary disease with exacerbation. 2. Bronchitis. 3. Mild metabolic acidosis. 4. History of carcinoma of the bladder. 5. Coronary artery disease 6. DNR PLAN: DC Solumedrol Prednisone 10 mg tid Aerosol nebs Cont Abx Supplement 02 Plavix 75 mg daily Slick Adhikari MD May 15, 2017 18:38
[2017-05-16 08:00] VITALS: BP 151/85; PULSE 75; RESP 20; TEMP 97; O2SAT 92
[2017-05-16 08:30] VITALS: PULSE 84
[2017-05-16 09:00] VITALS: O2SAT 95
[2017-05-16] MEDS: TIOTROPIUM BROMIDE 18 MCG INH INH SCH (09:00)
[2017-05-16] MEDS: predniSONE 10 MG TAB PO SCH ×2 (09:14→12:31)
[2017-05-16] MEDS: ASPIRIN EC 81 MG TABEC PO SCH (09:14)
[2017-05-16] MEDS: guaiFENesin E.R. 600 MG TAB PO SCH (09:14)
[2017-05-16] MEDS: PANTOPRAZOLE SOD 40 MG DELAYED RELEASE TAB PO SCH (09:14)
[2017-05-16] MEDS: ATORVASTATIN 40 MG TAB PO SCH (09:14)
[2017-05-16] MEDS: HEPARIN SODIUM - SQ 10,000 UNITS/ML VIAL SQ SCH (09:15)
[2017-05-16] MEDS: BUDESONIDE-FORMOTEROL 160/4.5 MCG INHALER INH SCH (09:15)
[2017-05-16] MEDS: CLOPIDOGREL 75 MG TAB PO SCH (09:15)
[2017-05-16] MEDS: FENOFIBRATE 48 MG TAB PO SCH (09:15)
[2017-05-16] MEDS: SODIUM CHLORIDE 0.9% FLUSH 10 ML FLUSH IV FLUSH SCH (09:16)
[2017-05-16 12:00] VITALS: BP 138/76; PULSE 86; RESP 22; TEMP 97.9; O2SAT 93
[2017-05-16] MEDS ORDERED: DOXY100C PO (12:04)
--- NOTE | 2017-05-16 12:06 | HHI.DCPOC ---
Discharge Care Plan Diagnosis: (1) UTI (urinary tract infection) due to Enterococcus (2) COPD with exacerbation Goals to Promote Your Health * To prevent worsening of your condition and complications * To maintain your health at the optimal level Directions to Meet Your Goals Take your medications as prescribed Follow your dietary instruction Follow activity as directed Keep your appointments as scheduled Take your immunizations and boosters as scheduled If your symptoms worsen call your PCP, if no PCP go to Urgent Care Center or Emergency Room Smoking is Dangerous to Your Health. Avoid second hand smoke Call the 24-hour hour crisis hotline for domestic abuse at Pierre Butler MD May 16, 2017 12:06
--- NOTE | 2017-05-16 12:07 | HHI.DS ---
Discharge Summary Admission Date May 12, 2017 at 01:17 Discharge Date: May 16, 2017 Admitting Diagnosis COPD exacerbation, hypoxemia, on Bipap (1) COPD with exacerbation ICD Code: J44.1 - Obstructive chronic bronchitis with exacerbation Status: Acute (2) Respiratory failure with hypoxia ICD Code: J96.91 - Respiratory failure, unspecified with hypoxia Procedures None Brief History - From Admission HPI from the admitting physician History from patient, ER physician communication, interview of medical's. Patient reported that on Thursday afternoon, he was discharged home from [facility]. He was hospitalized there for 5 days. Was not intubated. But he did require BiPAP administration there which was then weaned off to nightly use except for the last 2 nights of his stay there. He was managed there for COPD exacerbation. He states that as for as he knows, he was not told of having had pneumonia. He thinks he may have been given IV antibiotics for that he cannot be sure. He was discharged home on prednisone. He has home oxygen 3 L. After discharge, by Thursday afternoon, patient stated he was getting more and more short of breath. He tries nebulizers at home several times but was not improving therefore called 911. Also reports of worsening cough with sputum. States that the cough started this afternoon. He reports that his is also having a cold. no fever no blood in stool or urine- but states stool is black from hospital food on plavix at home, hgb 16 dizziness once in a while no chest pain, no abdominal pain, no syncope Patient arrived to emergency room by EMS on acute respiratory distress and was transported on C Pap to ER. This is changed to BiPAP in the emergency room and he slowly improved. By the time of my exam, patient was recently off BiPAP. However he is noted to be short of breath somewhat without BiPAP. He denies any nausea or vomiting. CBC/BMP: 05/15/17 0335 05/15/17 0335 Significant Findings Laboratory Tests Test 05/15/17 03:35 White Blood Count 16.8 TH/MM3 (4.0-11.0) Neutrophils (%) (Auto) 92.4 % (16.0-70.0) Lymphocytes (%) (Auto) 3.8 % (9.0-44.0) Neutrophils # (Auto) 15.6 TH/MM3 (1.8-7.7) Lymphocytes # (Auto) 0.6 TH/MM3 (1.0-4.8) Blood Urea Nitrogen 43 MG/DL (7-18) Creatinine 1.38 MG/DL (0.60-1.30) Random Glucose 186 MG/DL (74-106) Calcium Level 8.2 MG/DL (8.5-10.1) Chloride Level 112 MEQ/L (98-107) Estimat Glomerular Filtration Rate 52 ML/MIN (>89) Imaging Last Impressions Chest X-Ray 05/11/17 0824 Signed Impressions: Service Date/Time: Thursday, May 11, 2017 23:49 - CONCLUSION: No acute findings. Stable chronic focal opacity in the left costophrenic angle. Lobito Andre MD PE at Discharge GENERAL: NAD SKIN: Warm and dry. HEAD: Normocephalic. EYES: No scleral icterus. No injection or drainage. NECK: Supple, trachea midline. No JVD or lymphadenopathy. CARDIOVASCULAR: Regular rate and rhythm without murmurs, gallops, or rubs. RESPIRATORY: Breath sounds decrease bilaterally. No accessory muscle use. CTA GASTROINTESTINAL: Abdomen soft, non-tender, nondistended. MUSCULOSKELETAL: No cyanosis, or edema. BACK: Nontender without obvious deformity. No CVA tenderness. Pt update on day of discharge Patient reports he is feeling better. Breathing more comfortable. Comfortable with going home. Hospital Course 62-year-old man admitted with COPD exacerbation: Patient was treated with steroids, breathing treatments, and supplemental oxygen. There was suspected pneumonia and he was treated with antibiotics. His conditions improved significantly by the time of discharge. Patient also had a UTI for which he was treated with antibiotics . Home medications for chronic conditions were continued. Pt Condition on Discharge: Good Discharge Disposition: Discharge Home Discharge Time: <= 30 minutes Discharge Instructions DIET: Follow Instructions for: Heart Healthy Diet Activities you can perform: Regular-No Restrictions Follow up Referrals: Pulmonology - 1 Week New Medications: Doxycycline Hyclate (Doxycycline Hyclate) 100 Mg Cap 100 MG PO BID for Infection, #20 CAP 0 Refills Continued Medications: Albuterol 18 GM Inh (Ventolin Hfa 18 GM Inh) 90 Mcg/Act Aer 2 PUFF INH Q4-6H PRN for SHORTNESS OF BREATH, #1 INHALER 0 Refills Amlodipine (Amlodipine) 10 Mg Tab 10 MG PO DAILY for Blood Pressure Management, #30 TAB [address] (Aspir-81) 81 Mg Tabdr 81 MG PO DAILY Atorvastatin (Atorvastatin) 40 Mg Tab 40 MG PO DAILY Clopidogrel (Clopidogrel) 75 Mg Tab 75 MG PO DAILY for Blood Clot Prevention, #30 TAB 0 Refills Fenofibrate (Fenofibrate) 54 Mg Tab 54 MG PO DAILY Fluticasone-Salmeterol Inh (Advair Diskus Inh) 500-50 Mcg/Blist Aer 1 PUFF INH BID, #1 INHALER 0 Refills Rinse mouth after use. Nitrofurantoin Monohydrate Macrocrystals (Nitrofurantoin Monohydrate Macrocrystals) 100 Mg Cap 100 MG PO BID for Infection for 10 Days, #20 CAP 0 Refills Nitroglycerin SL (Nitroglycerin SL) 0.4 Mg Subl 0.4 MG SL DIRECTED PRN for CHEST PAIN, #100 TAB.SL 0 Refills ONE TABLET UNDER THE TONGUE NEEDED FOR CHEST PAIN, MAY REPEAT EVERY FIVE MINUTES FOR A TOTAL OF 3 DOSES OR CALL 911 IF NO RELIEF Prednisone (Prednisone) 10 Mg Tab 10 MG PO TID for 14 Days, TAB 0 Refills Pierre Butler MD May 16, 2017 12:06
--- NOTE | 2017-05-16 15:09 | HHI.PR ---
Subjective Remarks 62 YOWM with Severe COPD with exac. Recent hypercapnoic RF Request DNR Less sob Ambulates No Wheezing Objective Vital Signs Vital Signs Date Time Temp Pulse Resp B/P (MAP) Pulse Ox O2 Delivery O2 Flow Rate FiO2 05/16/17 12:00 97.9 86 22 138/76 (96) 93 05/16/17 09:15 Nasal Cannula 3.00 45 05/16/17 08:30 84 05/16/17 08:00 97.0 75 20 151/85 (107) 92 05/15/17 23:48 97.7 88 18 151/72 (98) 96 05/15/17 20:00 Nasal Cannula 3.00 05/15/17 20:00 96.3 90 20 151/70 (97) 93 05/15/17 20:00 77 05/15/17 16:00 97.3 82 22 151/69 (96) 95 I/O 05/15/17 05/15/17 05/15/17 05/16/17 05/16/17 05/16/17 07:00 15:00 23:00 07:00 15:00 23:00 Intake Total 150 ml 610 ml Balance 150 ml 610 ml Intake Oral 460 ml IV Total 150 ml 150 ml # Voids 3 5 5 # Bowel Movements 0 Result Diagram: 05/15/175 05/15/17 033 Objective Remarks GENERAL: WBWN WM, sob SKIN: Warm and dry. HEAD: Normocephalic. EYES: No scleral icterus. No injection or drainage. NECK: Supple, trachea midline. No JVD or lymphadenopathy. CARDIOVASCULAR: Regular rate and rhythm without murmurs, gallops, or rubs. RESPIRATORY: Breath sounds equal bilaterally. No accessory muscle use. Exp rhonchi GASTROINTESTINAL: Abdomen soft, non-tender, nondistended. MUSCULOSKELETAL: No cyanosis, or edema. BACK: Nontender without obvious deformity. No CVA tenderness. A/P Assessment and Plan IMPRESSION: 1. Chronic obstructive pulmonary disease with exacerbation. 2. Bronchitis. 3. Mild metabolic acidosis. 4. History of carcinoma of the bladder. 5. Coronary artery disease 6. DNR PLAN: Prednisone 10 mg tid Aerosol nebs Cont Abx Supplement 02 Plavix 75 mg daily DC Plans for home Will FU in office Slick Adhikari MD May 16, 2017 15:09
== END 2017-05-16 13:24 | disposition home or self-care (01) | DRG 190 ==
LOC: NEPC 23:27 → NEDA 05-12 01:17 → NEDH 05-12 05:03 → HOCA 05-13 16:20
PROVIDERS: ADMIT Family Medicine; ATTEND Family Medicine
PROC: 5A09357 Assistance with Respiratory Ventilation, Less than 24 Consecutive Hours, Continuous Positive Airway Pressure (ICD-10-PCS; principal; 2017-05-11)
DX: J44.1 Chronic obstructive pulmonary disease with (acute) exacerbation (principal); J96.91 Respiratory failure, unspecified with hypoxia; J96.92 Respiratory failure, unspecified with hypercapnia; J18.9 Pneumonia, unspecified organism; E87.2 Acidosis; N39.0 Urinary tract infection, site not specified; Z99.81 Dependence on supplemental oxygen; E78.5 Hyperlipidemia, unspecified; F17.210 Nicotine dependence, cigarettes, uncomplicated; I25.10 Atherosclerotic heart disease of native coronary artery without angina pectoris; R00.0 Tachycardia, unspecified; N18.9 Chronic kidney disease, unspecified; I12.9 Hypertensive chronic kidney disease with stage 1 through stage 4 chronic kidney disease, or unspecified chronic kidney disease; E66.9 Obesity, unspecified; J44.0 Chronic obstructive pulmonary disease with (acute) lower respiratory infection; Z82.49 Family history of ischemic heart disease and other diseases of the circulatory system; I25.2 Old myocardial infarction; Z85.51 Personal history of malignant neoplasm of bladder; Z68.33 Body mass index [BMI] 33.0-33.9, adult; Z66 Do not resuscitate; B95.2 Enterococcus as the cause of diseases classified elsewhere; Z79.82 Long term (current) use of aspirin
CPT/HCPCS: 36600; 71045; 80048; 80053; 81001; 82550; 82552; 82805; 83735; 83880; 84484; 85025; 85610; 85730; 87077; 87086; 87186; 87804; 93005; 94150; 94640; 94664; 94667; 94668; 96374; 96375; J1644; J1956; J2920; J2930; J7512